=== PATIENT | female | born 1985 | race Caucasian/White ===

== ENCOUNTER 2018-05-04 06:08 | Inpatient (IN) | payer BC ==
[2018-05-04] MEDS ORDERED: OXYTOCIN 10 UNIT/ML 1 ML VIAL IM PRN (06:18)
[2018-05-04] MEDS ORDERED: METHYLERGONOVINE 0.2 MG/ML 1 ML AMP IM PRN (06:18)
[2018-05-04] MEDS ORDERED: LIDOCAINE 1% (PF) 10 MG/ML (30 ML SDV) SQ PRN (06:18)
[2018-05-04] MEDS ORDERED: CARBOPROST TROMETHAMINE 250 MCG/ML 1 ML AMP IM PRN (06:18)
[2018-05-04] MEDS ORDERED: TERBUTALINE 1 MG/ML VIAL SQ PRN (06:18)
[2018-05-04 06:26] VITALS: BMI 31.9
[2018-05-04] MEDS: LACTATED RINGERS 1,000 ML IV SCH ×4 (06:28→21:46)
[2018-05-04] MEDS ORDERED: LACTATED RINGERS 1,000 ML IV SCH (06:30)
[2018-05-04] MEDS: OXYTOCIN 20 UNITS/1000 ML NS 1,000 ML IV SCH (06:45)
[2018-05-04 06:47] LABS: Basophils # (A) 0.1 k/uL (0-0.2); Basophils % (A) 1 %; Eosinophils # (A) 0.2 k/uL (0-0.7); Eosinophils % (A) 3 %; HCT 37.9 % (34.0-46.0); HGB 12.5 gm/dL (11.4-16.0); Lymphocytes # (A) 1.5 k/uL (1.0-4.8); Lymphocytes % (A) 17 %; MCHC 33.1 g/dL (31.0-37.0); MCV 93.6 fL (80.0-100.0); Mean Platelet Volume 7.8; Monocytes # (A) 0.5 k/uL (0-1.0); Monocytes % (A) 6 %; Neutrophils # (A) 6.1 k/uL (1.3-7.7); Neutrophils % (A) 72 %; Platelet Count 257 k/uL (150-450); RBC 4.05 m/uL (3.80-5.40); RDW 14.2 % (11.5-15.5); WBC 8.5 k/uL (3.8-10.6)
--- NOTE | 2018-05-04 07:54 | P.HPOB ---
History of Present Illness H&P Date: 05/04/18 This is a 33-year-old white female 2 para 0010 EDC 05/05/2018 at 39-6/7 weeks' gestation. Patient presents today for induction with favorable cervix, in latent phase labor. Fetus is been active throughout the . She denies vaginal bleeding or fluid leakage. Past medical history is significant for fourth induced asthma, and anemia. 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 Current medications vitamins daily. ALLERGIES include amoxicillin to which reports a childhood reaction. Family history is significant for skin cancer, ovarian cancer hypertension and hypercholesterolemia, diabetes, dementia, Alzheimer's disease, cervical cancer, congestive heart failure. Social history patient is single, her boyfriend is involved, she works for [employer] she is a former social smoker but denies alcohol or drug use. history significant for blood type O+, group B strep cultures negative. Rubella status immune. VDRL testing, Pap smear, urine culture, hepatitis B surface antigen, HIV testing, gonorrhea and chlamydia cultures all negative. One-hour Glucola 90. On exam this is a pleasant white female, 5 foot 4 inches, 186 pounds, vital signs are stable and patient is afebrile, admitting blood pressure 111/65. The general physical exam is within normal limits. Cervix is 3-4 cm dilated, 70-80 % effaced, -1 station, vertex presentation, soft. Artificial amniorrhexis reveals clear fluid, slightly bloody tinged. heart tones in the 140s with frequent accelerations consistent with reactive NST. Impression: 39-6/7 weeks intrauterine , here for induction of labor, all signs reassuring. Plan: Close maternal and surveillance. Oxytocin per hospital protocol. Analgesic options have been reviewed with the patient. Anticipate normal spontaneous vaginal delivery. Review of Systems As noted in HPI. Constitutional: Reports as per HPI Past Medical History Past Medical History: Asthma History of Any Multi-Drug Resistant Organisms: None Reported Past Surgical History: No Surgical Hx Reported Additional Past Surgical History / Comment(s): Laser birthmark Past Anesthesia/Blood Transfusion Reactions: No Reported Reaction Past Psychological History: No Psychological Hx Reported Smoking Status: Never smoker Past Drug Use History: None Reported - Past Family History Mother Family Medical History: No Reported History Medications and Allergies Home Medications Medication Instructions Recorded Confirmed Type Pnv No.95/Ferrous Fum/Folic AC 1 tab PO ONCE 05/04/18 05/04/18 History [ Multivitamin Tablet] Allergies Allergy/AdvReac Type Severity Reaction Status Date / Time amoxicillin Allergy Rash/Hives Verified 05/04/18 06:18 Penicillins Allergy Rash/Hives Verified 05/04/18 06:18 Exam Vital Signs Temp Pulse Resp BP Pulse Ox 05/04/18 06:13 98.2 F 89 16 111/65 97 Intake and Output 05/03/18 05/04/18 05/04/18 22:59 06:59 14:59 Other: Weight 84.368 kg See dictation under HPI please Results Result Diagrams: 05/04/18 06:30 Assessment and Plan Assessment: 39-6/7 weeks intrauterine , here for induction of labor. All signs reassuring. Plan: Close maternal and surveillance. Oxytocin per hospital protocol. Analgesic options reviewed. Anticipate normal spontaneous vaginal delivery. Time with Patient: Less than 30
[2018-05-04] MEDS ORDERED: ROPIVACAINE 100 MG, fentaNYL (PF) 200 MCG in SODIUM CHLORIDE 0.9% 76 ML EPIDURAL ONE (10:10)
[2018-05-04] MEDS ORDERED: CITRIC ACID-SODIUM CITRATE 15 ML CUP PO ONE (17:20)
[2018-05-04] MEDS ORDERED: OXYTOCIN 10 UNIT/ML 1 ML VIAL ONE (17:32)
[2018-05-04] MEDS ORDERED: ONDANSETRON 4 MG/2 ML VIAL ONE (17:32)
[2018-05-04] MEDS ORDERED: KETOROLAC 30 MG/ML 1 ML VIAL ONE (17:32)
[2018-05-04] MEDS ORDERED: ePHEDrine SULFATE/0.9% NACL/PF 50 MG/5 ML SYRINGE IV ONE (17:32)
[2018-05-04] MEDS ORDERED: CHLOROPROCAINE 3% 30 MG/ML 20 ML VIAL ONE (17:32)
[2018-05-04] MEDS ORDERED: ONDANSETRON 4 MG/2 ML VIAL IVP PRN ×3 (18:32→19:49)
[2018-05-04] MEDS ORDERED: METOCLOPRAMIDE 5 MG/ML 2 ML VIAL IVP PRN ×2 (18:32→19:49)
--- NOTE | 2018-05-04 18:32 | P.OP ---
Date of Procedure: 05/04/18 Preoperative Diagnosis: Arrest of descent, suspect occiput posterior, 39-2/7 weeks' gestation. Postoperative Diagnosis: Liveborn male infant, normal-appearing tubes and ovaries, occiput posterior position, nuchal cord 1 Procedure(s) Performed: Primary low transverse section Anesthesia: epidural Surgeon: Jessica Fregoso Water Registrar #1: Mehreen Mena Estimated Blood Loss (ml): 600 IV fluids (ml): 1,000 Urine output (ml): 200 Pathology: none sent Condition: stable Disposition: PACU Indications for Procedure: Arrest of descent in the second stage of labor after 90 minutes of pushing, large amount of It, suspect occiput posterior, intermittent runs of late decelerations. Operative Findings: Liveborn male infant, scores 8 and 9, nuchal cord 1, occiput posterior, large amount of caput. Description of Procedure: Patient was brought to the operating suite where the epidural previously placed was "topped off". 2 g of Ancef are given. The appropriate timeout is performed to assure proper patient and procedural identification. The abdomen is prepped and draped in usual sterile fashion. Mina catheter placed to direct drainage, upon placement of Mina urine is noted to be mildly bloody. The analgesia is checked and noted to be adequate. A low transverse skin incision is made in this is carried down through the subcutaneous tissue. Fascia is isolated, scored and extended bilaterally with curved Marie scissors. Rectus muscles are in the midline, peritoneum is identified and incised. There is no bowel or bladder involvement. Bladder blade is placed over the dome of the bladder and at all times the bladder is Well from the operative field to avoid bladder and/or ureteral injury. A low transverse uterine incision is made in this is carried down through the myometrium. The incision is extended with blunt dissection. 's head is delivered in the straight occiput posterior position. There is a large amount of Noted and a nuchal cord 1 that was easily reduced. Patient is officially delivered of a liveborn male at 1755 hours. Umbilical cord is doubly clamped and ligated, he is handed to waiting nurses for evaluation where scores of 8 and 9 at one and 5 minutes respectively are given. weighs 3700 g or 8 lbs. 3 oz. Placenta is delivered manually , it is inspected and noted to be intact with trivascular cord at 1756 hours. Uterus is then externalized. It is swept clean with a sterile sponge to avoid any retained products of conception. Uterus is closed in a two-step fashion, first layer running locking, second layer imbricated. Bilateral tubes and ovaries appear normal to inspection. The abdomen is suctioned with suction on guard. The uterus is gently placed back into the abdominal cavity. The uterine incision is once again inspected, noted to be well approximated and clean and dry. Peritoneum was allowed to close by secondary intention. Fascia is closed in a running stitch of 0 Vicryl with over ligation in the midline. Subcutaneous tissue is irrigated, noted to be clean and dry. It is reapproximated with 3-0 Vicryl in a running stitch. 4-0 undyed Vicryl issues for final skin closure in a subcutaneous stitch. Steri-Strips and Mastisol are applied to the wound. Estimated blood loss 600 mL's. Mina is noted to be draining 200 mL of again slightly bloody urine. All sponge needle and enhancement counts are correct at the end of the procedure. Total fluids given in the OR 1000 mL's. Patient is brought back to begin her postoperative recovery. They are requesting circumcision further son.
[2018-05-04] MEDS ORDERED: diphenhydrAMINE 50 MG/ML 1 ML VIAL IVP PRN ×3 (18:40→19:49)
[2018-05-04] MEDS ORDERED: NALOXONE 0.4 MG/ML 1 ML VIAL IV PRN ×2 (18:40→19:49)
[2018-05-04] MEDS ORDERED: diphenhydrAMINE 25 MG CAP PO PRN (19:49)
[2018-05-04] MEDS ORDERED: diphenhydrAMINE 50 MG CAP PO PRN (19:49)
[2018-05-04] MEDS ORDERED: ZOLPIDEM 5 MG TAB PO PRN (19:49)
[2018-05-04] MEDS: SENNOSIDES-DOCUSATE SODIUM 1 EACH TAB PO SCH (20:40)
[2018-05-04] MEDS: KETOROLAC 30 MG/ML 1 ML VIAL IVP PRN (23:48)
[2018-05-05] MEDS: LACTATED RINGERS 1,000 ML IV SCH ×2 (06:03→19:50)
--- NOTE | 2018-05-05 06:23 | P.PN ---
Progress Note - Text Progress Note Date: 05/05/18 I seen Mrs. Hobbs this morning. She was laying in bed comfortably. She had an epidural catheter that was placed for vaginal delivery yesterday. Patient ended up going for a in the evening. At that time the epidural catheter was bolused with 3% chloroprocaine and primary was completed. After and she was given 3 mg of Duramorph through the epidural catheter in the epidural catheter was removed. Duramorph orders were placed in the computer patient has been monitored appropriately by the nursing staff. This morning patient reports that she has minimal pain at rest but has some pain with movement. She has minimal itching and reports that she has not urinated or had a bowel movement yet. She will attempt to urinate this morning with the help of nursing staff. She denies any numbness or tingling in her legs any weakness of her lower extremities epidural site is clean and dry this morning there is no fluctuance or erythema.
[2018-05-05] MEDS: KETOROLAC 30 MG/ML 1 ML VIAL IVP PRN ×2 (07:45→14:09)
[2018-05-05] MEDS: SENNOSIDES-DOCUSATE SODIUM 1 EACH TAB PO SCH ×2 (07:46→20:22)
--- NOTE | 2018-05-05 08:15 | P.PN ---
Subjective Progress Note Date: 05/05/18 Principal diagnosis: Postoperative day #1 Slept well. Negative flatus. Pain well controlled. Objective - Vital Signs Vital signs: Vital Signs Temp 98.4 F 05/05/18 04:00 Pulse 113 H 05/05/18 04:00 Resp 18 05/05/18 04:00 BP 115/69 05/05/18 04:00 Pulse Ox 96 05/05/18 04:00 Intake & Output 05/04/18 05/05/18 05/05/18 18:59 06:59 18:59 Intake Total 2000 Output Total 400 2900 Balance 1600 -2900 Intake: IV 2000 Lactated Ringers 1,000 ml 2000 @ 125 mls/hr IV .Q8H KULDIP Rx#:[id number] Output: Urine 400 2900 Uretheral (Mina) 400 - Constitutional General appearance: Present: average body habitus, cooperative - EENT Eyes: Present: PERRLA ENT: Present: hearing grossly normal - Neck Neck: Present: normal ROM Thyroid: bilateral: normal size - Respiratory Respiratory: bilateral: CTA - Cardiovascular Rhythm: regular - Gastrointestinal Gastrointestinal Comment(s): Abdomen softly distended, tympanic. Fundus firm, midline, symmetric, 18 week size. Incision clean and dry, well approximated, Steri-Strips intact. General gastrointestinal: Present: normal bowel sounds - Integumentary Integumentary: Present: normal - Neurologic Neurologic: Present: CNII-XII intact - Musculoskeletal Musculoskeletal: Present: gait normal, strength equal bilaterally - Psychiatric Psychiatric: Present: A&O x's 3, appropriate affect, intact judgment & insight - Labs CBC & Chem 7: 05/04/18 06:30 Assessment and Plan Assessment: Postoperative day #1, doing well Plan: Advance diet and activity. DC IV. Likely circumcision tomorrow, possible discharge home tomorrow as well. Time with Patient: Less than 30
[2018-05-05 09:16] LABS: HCT 31.5 % (34.0-46.0); MCH 30.3 pg (25.0-35.0); MCHC 31.8 g/dL (31.0-37.0); MCV 95.2 fL (80.0-100.0); Mean Platelet Volume 8.8; Platelet Count 200 k/uL (150-450); RBC 3.31 m/uL (3.80-5.40); RDW 14.1 % (11.5-15.5); WBC 12.9 k/uL (3.8-10.6)
[2018-05-05 10:10] LABS: Band Neutrophils % 2 %; Hypochromasia (M) Present; Lymphocytes # (M) 0.52 k/uL (1.0-4.8); Monocytes # (M) 0.65 k/uL (0-1.0); Neutrophils % (M) 89 %; Nucleated Red Blood Cells 0 /100 WBC (0-0); Total Cells Counted 100
[2018-05-05 10:23] VITALS: RESP 16
[2018-05-05] MEDS: OXYTOCIN 20 UNITS/1000 ML NS 1,000 ML IV SCH (19:49)
[2018-05-05] MEDS: IBUPROFEN 600 MG TAB PO PRN (20:22)
[2018-05-05] MEDS: ACETAMINOPHEN TAB 325 MG TAB PO PRN (23:00)
[2018-05-06] MEDS: IBUPROFEN 600 MG TAB PO PRN ×4 (02:06→20:55)
[2018-05-06] MEDS: ACETAMINOPHEN TAB 325 MG TAB PO PRN ×2 (05:28→12:29)
--- NOTE | 2018-05-06 06:39 | P.DS ---
Providers Date of admission: 05/04/18 06:08 Expected date of discharge: 05/06/18 Attending physician: Jessica Fregoso Primary care physician: Stated None Hospital Course: This is a 33-year-old white female 2 para 0010 EDC 05/05/2018 at 3 9-6/ 7 weeks' gestation. Patient presented for induction with favorable cervix. Fetus is been active throughout the . history is essentially unremarkable. Please see my dictated history and physical for details. Patient progressed to the second stage of labor and pushed for 90 minutes with no advancement of station. A large amount of Was noted, occiput posterior position was suspected. Decision was made to proceed with primary low transverse section. This was performed without difficulties, she gave to a liveborn male with scores of 8 and 9 at one and 5 minutes respectively. was noted to be in the straight occiput posterior position with a nuchal cord 1. He weighed 3700 g or 8 lbs. 3 oz. Please see my dictated operative note for details. This morning the patient is doing well. She is voiding, ambulating and passing flatus without difficulty. Vital signs are stable and she is afebrile. Fundus is firm and in the midline, symmetric and 18 week size. Incision is clean and dry, intact, Steri-Strips applied. Breasts are not engorged. Extremities are negative for edema. [place] infant has been circumcised and is doing well. Patient is being discharged home in good condition. She will follow-up with me in the office in 2 weeks. I have reminded her no intercourse, tampons or douching. She will use [id number] Advil or Aleve as needed for pain. She will call with any fevers shakes or chills, foul smelling or copious lochia , with the passage of large blood clots, with any pain not alleviated by over- the-counter products, or indeed with any concerns. Patient Condition at Discharge: Good Plan - Discharge Summary Discharge Rx Participant: No New Discharge Prescriptions: No Action Pnv No.95/Ferrous Fum/Folic AC [ Multivitamin Tablet] 1 tab PO ONCE Discharge Medication List Pnv No.95/Ferrous Fum/Folic AC [ Multivitamin Tablet] 1 tab PO ONCE 02/13 [History] Follow up Appointment(s)/Referral(s): Jessica Fregoso MD [STAFF PHYSICIAN] - 2 Weeks Discharge Disposition: HOME SELF-CARE
[2018-05-06] MEDS: SENNOSIDES-DOCUSATE SODIUM 1 EACH TAB PO SCH ×2 (09:07→21:28)
[2018-05-06 17:24] VITALS: BP 102/63; PULSE 76; TEMP 98.4
== END 2018-05-06 21:29 | disposition home or self-care (01) | DRG 766 ==
LOC: 4FBP 06:08
PROVIDERS: ADMIT Obstetrics & Gynecology; ATTEND Obstetrics & Gynecology
PROC: 00HU33Z Insertion of Infusion Device into Spinal Canal, Percutaneous Approach (ICD-10-PCS; 2018-05-04)
PROC: 3E0R3BZ Introduction of Anesthetic Agent into Spinal Canal, Percutaneous Approach (ICD-10-PCS; 2018-05-04)
PROC: 10D00Z1 Extraction of Products of Conception, Low, Open Approach (ICD-10-PCS; principal; 2018-05-04 17:32)
DX: O69.81X0 Labor and delivery complicated by cord around neck, without compression, not applicable or unspecified (principal); Z37.0 Single live birth; O62.1 Secondary uterine inertia; O76 Abnormality in fetal heart rate and rhythm complicating labor and delivery; Z3A.39 39 weeks gestation of pregnancy; Z87.891 Personal history of nicotine dependence; Z87.09 Personal history of other diseases of the respiratory system; Z88.0 Allergy status to penicillin; Z80.41 Family history of malignant neoplasm of ovary; Z80.49 Family history of malignant neoplasm of other genital organs; Z80.8 Family history of malignant neoplasm of other organs or systems; Z82.0 Family history of epilepsy and other diseases of the nervous system; Z82.49 Family history of ischemic heart disease and other diseases of the circulatory system; Z83.3 Family history of diabetes mellitus
CPT/HCPCS: 85025

== ENCOUNTER 2020-04-25 09:41 | Emergency (ER) | payer BC ==
[2020-04-25] MEDS ORDERED: SODIUM CHLORIDE 0.9% 500 ML 500 ML IV STA (09:54)
--- NOTE | 2020-04-25 10:00 | ED ---
General Adult HPI - General Chief complaint: Chest Pain Stated complaint: chest pain/[place] Time Seen by Provider: 04/25/20 09:48 Source: patient, RN notes reviewed Mode of arrival: ambulatory Limitations: no limitations - History of Present Illness Initial comments: 35-year-old female with a past medical history of asthma presents to the emergency department for a chief complaint of chest pain. Patient reports that last night she started to have a pressure in the center of her chest. States it comes and goes but sometimes worsens with particular movements. Patient reports that movement worsens the pain such as twisting or picking something up. States at that time it feels like sharp twinges of pain. Patient also reports that deep breaths worsen her pain. Denies any radiating pain. Denies any diaphoresis. Denies nausea or vomiting. Patient denies any recent surgeries or travel. Denies any calf pain. Patient denies smoking history. Denies family history of [place]. Denies pain worsening on exertion. Patient has no other complaints at this time including abdominal pain, nausea or vomiting, headache, or visual changes. - Related Data Home Medications Medication Instructions Recorded Confirmed Frankie Fe 1 tab PO HS 04/25/20 04/25/20 Loratadine [Claritin] 10 mg PO DAILY PRN 04/25/20 04/25/20 Allergies Allergy/AdvReac Type Severity Reaction Status Date / Time amoxicillin Allergy Rash/Hives Verified 04/25/20 11:22 Penicillins Allergy Rash/Hives Verified 04/25/20 11:22 Review of Systems ROS Statement: Those systems with pertinent positive or pertinent negative responses have been documented in the HPI. ROS Other: All systems not noted in ROS Statement are negative. Past Medical History Past Medical History: Asthma History of Any Multi-Drug Resistant Organisms: None Reported Past Surgical History: No Surgical Hx Reported Additional Past Surgical History / Comment(s): Laser birthmark Past Anesthesia/Blood Transfusion Reactions: No Reported Reaction Past Psychological History: No Psychological Hx Reported Smoking Status: Never smoker Past Alcohol Use History: Occasional Past Drug Use History: None Reported - Past Family History Mother Family Medical History: No Reported History General Exam Limitations: no limitations General appearance: alert, in no apparent distress Head exam: Present: atraumatic Eye exam: Present: normal appearance, PERRL, EOMI. Absent: scleral icterus, conjunctival injection, periorbital swelling ENT exam: Present: normal exam, mucous membranes moist Neck exam: Present: normal inspection, full ROM. Absent: tenderness, meningismus, lymphadenopathy Respiratory exam: Present: normal lung sounds bilaterally, chest wall tenderness (anterior chest wall tenderness). Absent: respiratory distress, wheezes, rales, rhonchi, stridor Cardiovascular Exam: Present: regular rate, normal rhythm, normal heart sounds. Absent: systolic murmur, diastolic murmur, rubs, gallop, clicks GI/Abdominal exam: Present: soft, normal bowel sounds. Absent: distended, tenderness, guarding, rebound, rigid Neurological exam: Present: alert Course Vital Signs 04/25/20 04/25/20 09:42 10:30 Temperature 98.2 F Pulse Rate 100 72 Respiratory 18 19 Rate Blood Pressure 128/76 114/70 O2 Sat by Pulse 100 97 Oximetry EKG Findings - EKG Comments: EKG Findings:: Normal sinus rhythm, ventricular rate 93, TN interval 126, QTC 415 Medical Decision Making - Medical Decision Making Vitals are stable. Patient does appear somewhat anxious. No respiratory distress. Patient is 100% on room air. CBC CMP is unremarkable. Troponin is negative. Urinalysis is negative. D-dimer is within normal limits. EKG does not show any ischemic changes. Chest x-ray is unremarkable. Given the patient has chest discomfort worsening with twisting movements and breathing suspect pain is more related to chest wall syndrome. Patient reports she is often picking up her 2 year-old and he is often jumping on her. Could be related to costochondritis. Could also be related to pleurisy. I do not suspect cardiac in nature. At this time patient will be discharged home. She will take NSAIDs. She will return here for any worsening symptoms. Otherwise patient will follow up with her primary care doctor. - Lab Data Result diagrams: 04/25/20 10:15 04/25/20 10:15 Lab Results 04/25/20 04/25/20 04/25/20 Range/Units 10:15 10:15 10:15 WBC 7.9 (3.8-10.6) k/uL RBC 4.26 (3.80-5.40) m/uL Hgb 13.1 (11.4-16.0) gm/dL Hct 40.7 (34.0-46.0) % MCV 95.6 (80.0-100.0) fL MCH 30.8 (25.0-35.0) pg MCHC 32.3 (31.0-37.0) g/dL RDW 13.0 (11.5-15.5) % Plt Count 235 (150-450) k/uL Neutrophils % 77 % Lymphocytes % 16 % Monocytes % 4 % Eosinophils % 2 % Basophils % 1 % Neutrophils # 6.1 (1.3-7.7) k/uL Lymphocytes # 1.2 (1.0-4.8) k/uL Monocytes # 0.3 (0-1.0) k/uL Eosinophils # 0.1 (0-0.7) k/uL Basophils # 0.0 (0-0.2) k/uL PT 9.5 (9.0-12.0) sec INR 0.9 (<1.2) APTT 24.2 (22.0-30.0) sec D-Dimer 0.31 (<0.60) mg/L FEU Sodium 137 (137-145) mmol/L Potassium 4.1 (3.5-5.1) mmol/L Chloride 108 H (98-107) mmol/L Carbon Dioxide 22 (22-30) mmol/L Anion Gap 7 mmol/L BUN 9 (7-17) mg/dL Creatinine 0.65 (0.52-1.04) mg/dL Est GFR (CKD-EPI)AfAm >90 (>60 ml/min/1.73 sqM) Est GFR (CKD-EPI)NonAf >90 (>60 ml/min/1.73 sqM) Glucose 92 (74-99) mg/dL Calcium 8.9 (8.4-10.2) mg/dL Magnesium 1.8 (1.6-2.3) mg/dL Total Bilirubin 0.4 (0.2-1.3) mg/dL AST 14 (14-36) U/L ALT 8 (4-34) U/L Alkaline Phosphatase 51 (38-126) U/L Troponin I (0.000-0.034) ng/mL Total Protein 6.7 (6.3-8.2) g/dL Albumin 3.9 (3.5-5.0) g/dL Lipase 50 (23-300) U/L Urine Color Urine Appearance (Clear) Urine pH (5.0-8.0) Ur Specific Mon[place] (1.001-1.035) Urine Protein (Negative) Urine Glucose (UA) (Negative) Urine Ketones (Negative) Urine Blood (Negative) Urine Nitrite (Negative) Urine Bilirubin (Negative) Urine Urobilinogen (<2.0) mg/dL Ur Leukocyte Esterase (Negative) Urine HCG, Qual (Not Detectd) 04/25/20 04/25/20 04/25/20 Range/Units 10:15 10:15 10:22 WBC (3.8-10.6) k/uL RBC (3.80-5.40) m/uL Hgb (11.4-16.0) gm/dL Hct (34.0-46.0) % MCV (80.0-100.0) fL MCH (25.0-35.0) pg MCHC (31.0-37.0) g/dL RDW (11.5-15.5) % Plt Count (150-450) k/uL Neutrophils % % Lymphocytes % % Monocytes % % Eosinophils % % Basophils % % Neutrophils # (1.3-7.7) k/uL Lymphocytes # (1.0-4.8) k/uL Monocytes # (0-1.0) k/uL Eosinophils # (0-0.7) k/uL Basophils # (0-0.2) k/uL PT (9.0-12.0) sec INR (<1.2) APTT (22.0-30.0) sec D-Dimer (<0.60) mg/L FEU Sodium (137-145) mmol/L Potassium (3.5-5.1) mmol/L Chloride (98-107) mmol/L Carbon Dioxide (22-30) mmol/L Anion Gap mmol/L BUN (7-17) mg/dL Creatinine (0.52-1.04) mg/dL Est GFR (CKD-EPI)AfAm (>60 ml/min/1.73 sqM) Est GFR (CKD-EPI)NonAf (>60 ml/min/1.73 sqM) Glucose (74-99) mg/dL Calcium (8.4-10.2) mg/dL Magnesium (1.6-2.3) mg/dL Total Bilirubin (0.2-1.3) mg/dL AST (14-36) U/L ALT (4-34) U/L Alkaline Phosphatase (38-126) U/L Troponin I <0.012 (0.000-0.034) ng/mL Total Protein (6.3-8.2) g/dL Albumin (3.5-5.0) g/dL Lipase (23-300) U/L Urine Color Light Yellow Urine Appearance Clear (Clear) Urine pH 5.5 (5.0-8.0) Ur Specific [place] 1.011 (1.001-1.035) Urine Protein Negative (Negative) Urine Glucose (UA) Negative (Negative) Urine Ketones Negative (Negative) Urine Blood Negative (Negative) Urine Nitrite Negative (Negative) Urine Bilirubin Negative (Negative) Urine Urobilinogen <2.0 (<2.0) mg/dL Ur Leukocyte Esterase Negative (Negative) Urine HCG, Qual Not Detected (Not Detectd) Disposition Clinical Impression: Chest wall syndrome, Atypical chest pain Disposition: HOME SELF-CARE Condition: Good Instructions (If sedation given, give patient instructions): Costochondritis (ED), Chest Pain (ED) Additional Instructions: Please take Motrin and Tylenol for pain. Please follow-up with your doctor in one to 2 days. If symptoms are worsening return to the emergency room. Is patient prescribed a controlled substance at d/c from ED?: No Referrals: Nonstaff,Physician [Primary Care Provider] - 1-2 days Time of Disposition: 11:27
[2020-04-25] MEDS ORDERED: MORPHINE SULFATE 4 MG/ML SYRINGE IVP STA (10:23)
[2020-04-25 10:27] LABS: Basophils % (A) 1 %; Eosinophils # (A) 0.1 k/uL (0-0.7); Eosinophils % (A) 2 %; HCT 40.7 % (34.0-46.0); HGB 13.1 gm/dL (11.4-16.0); Lymphocytes # (A) 1.2 k/uL (1.0-4.8); Lymphocytes % (A) 16 %; MCH 30.8 pg (25.0-35.0); MCHC 32.3 g/dL (31.0-37.0); MCV 95.6 fL (80.0-100.0); Mean Platelet Volume 8.2; Monocytes # (A) 0.3 k/uL (0-1.0); Monocytes % (A) 4 %; Neutrophils # (A) 6.1 k/uL (1.3-7.7); Neutrophils % (A) 77 %; Platelet Count 235 k/uL (150-450); RBC 4.26 m/uL (3.80-5.40); WBC 7.9 k/uL (3.8-10.6)
[2020-04-25 10:30] LABS: Appearance,Urine Clear (Clear); Bilirubin,Urine Negative (Negative); Blood,Urine Negative (Negative); Color,Urine Light Yellow; Glucose,Urine (UA) Negative (Negative); Ketones,Urine Negative (Negative); Leukocyte Esterase,Urine Negative (Negative); Nitrite,Urine Negative (Negative); PH, Urine 5.5 (5.0-8.0); Protein,Urine Negative (Negative); Specific Gravity,Urine 1.011 (1.001-1.035); Urobilinogen,Urine <2.0 mg/dL (<2.0)
[2020-04-25 10:42] LABS: D-Dimer 0.31 mg/L FEU (<0.60); INR 0.9 (<1.2); Partial Thromboplastin Time 24.2 sec (22.0-30.0); Prothrombin Time 9.5 sec (9.0-12.0)
[2020-04-25 10:43] LABS: ALT 8 U/L (4-34); AST 14 U/L (14-36); African American GFR (CKD) >90 (>60 ml/min/1.73 sqM); Albumin 3.9 g/dL (3.5-5.0); Alkaline Phosphatase 51 U/L (38-126); Anion Gap 7 mmol/L; Blood Urea Nitrogen 9 mg/dL (7-17); Calcium 8.9 mg/dL (8.4-10.2); Carbon Dioxide 22 mmol/L (22-30); Chloride 108 mmol/L (98-107); Glucose 92 mg/dL (74-99); Magnesium 1.8 mg/dL (1.6-2.3); Non-African American GFR(CKD) >90 (>60 ml/min/1.73 sqM); Potassium 4.1 mmol/L (3.5-5.1); Sodium 137 mmol/L (137-145); Total Bilirubin 0.4 mg/dL (0.2-1.3); Total Protein 6.7 g/dL (6.3-8.2)
--- NOTE | 2020-04-25 10:49 | XR ---
EXAMINATION TYPE: XR chest 2V DATE OF EXAM: 04/25/2020 COMPARISON: NONE HISTORY: Chest pain TECHNIQUE: Frontal and lateral views of the chest are obtained. FINDINGS: There is no focal air space opacity. No evidence for pneumothorax. No pleural effusion. The cardiac silhouette size is within normal limits. The osseous structures are grossly intact. IMPRESSION: 1. No acute cardiopulmonary process.
[2020-04-25] MEDS ORDERED: KETOROLAC 15 MG/ML 1 ML VIAL IVP STA (11:17)
[2020-04-25 11:33] VITALS: BP 100/67; PULSE 67; RESP 18
[2020-04-25 11:41] VITALS: TEMP 98.4
== END 2020-04-25 11:48 | disposition home or self-care (01) ==
LOC: EC 09:41
DX: R07.1 Chest pain on breathing (principal); R07.89 Other chest pain; Z88.0 Allergy status to penicillin
CPT/HCPCS: 36415; 93005; 85379; 80053; 83690; 83735; 84484; 85025; 85610; 85730; 81025; 81003; 71046; 96374; 96375; 96361; 99284; J2270; J1885

== ENCOUNTER → 2022-07-13 | Outpatient (CLI) | payer BC ==
--- NOTE | 2022-07-13 10:26 | MM ---
Reason for Exam: Screening (asymptomatic). Baseline mammogram. Patient History: Menarche at age 12. First Full-Term at age 33. Late child-bearing (after 30). Premenopausal. Last menstrual period: 07/05/2022 Risk Values: Olga 5 year model risk: 0.5%. NCI Lifetime model risk: 13.8%. Prior Study Comparison: Patient's first Mammogram. Tissue Density: The breast tissue is extremely dense which could obscure a lesion on mammography. Findings: Analyzed By CAD. There is no suspicious group of microcalcifications or new distortion in either breast. Overall Assessment: Negative, BI-RAD 1 Management: Screening Mammogram of both breasts at age 40. Some advise bilateral breast ultrasound surveillance in patients with background extreme dense tissue. A clinical breast exam by your physician is recommended on an annual basis and results should be correlated with mammographic findings. Electronically signed and approved by: Moses Loco M.D.
== END | disposition home or self-care (01) ==
LOC: RADMAMWWP 09:25
PROVIDERS: ATTEND Obstetrics & Gynecology
DX: Z12.31 Encounter for screening mammogram for malignant neoplasm of breast (principal)
CPT/HCPCS: 77063; 77067

== ENCOUNTER → 2025-03-26 | Outpatient (CLI) | payer OTHER ==
--- NOTE | 2025-03-26 12:01 | MM ---
Reason for Exam: Screening (asymptomatic). Last mammogram was performed 2 year(s) and 8 month(s) ago. Patient History: Menarche at age 12. First Full-Term at age 33. Late child-bearing (after 30). Premenopausal. Risk Values: Olga 5 year model risk: 0.8%. NCI Lifetime model risk: 13.6%. Prior Study Comparison: 07/13/2022 Bilateral MG 3D screening mammo w/cad, [facility]. Tissue Density: The breasts are extremely dense, which lowers the sensitivity of mammography. Findings: Analyzed By CAD. There is no suspicious group of microcalcifications or new suspicious mass in either breast. Overall Assessment: Negative, BI-RAD 1 Management: Screening Mammogram of both breasts in 1 year. Given the patient's extremely dense breast tissue, consideration can be given to supplementary screening with breast ultrasound. The patient would also benefit from future screening with 3-D mammograms. Patient should continue monthly self-breast exams. A clinical breast exam by your physician is recommended on an annual basis. This exam should not preclude additional follow-up of suspicious palpable abnormalities. Note on Olga scores and lifetime risk: 1. A Olga score greater than 3% is considered moderate risk. If this is the case, consider specialist referral to assess eligibility for a risk reducing agent. 2. If overall lifetime risk for the development of breast cancer is 20% or higher, the patient may qualify for future screening with alternating mammogram and breast MRI. [facility], , 03/26/2025 11:57 AM. Electronically signed and approved by: Antoine Marroquin M.D. Radiologist
== END | disposition home or self-care (01) ==
LOC: RADMAMWWP 08:32
PROVIDERS: ATTEND Obstetrics & Gynecology Obstetrics
DX: Z12.31 Encounter for screening mammogram for malignant neoplasm of breast (principal); R92.343 Mammographic extreme density, bilateral breasts
CPT/HCPCS: 77067